=== PATIENT | female | born 1960 | race Two or more races ===

== ENCOUNTER 2021-04-03 11:18 | Outpatient (CLI) | payer OTHER | END 2021-04-03 14:07 | disposition home or self-care (01) | LOC: SONOGRAMA 11:18 | PROVIDERS: ATTEND Pathology Anatomic Pathology & Clinical Pathology | DX: E06.9 Thyroiditis, unspecified (principal) ==

== ENCOUNTER 2021-05-10 10:09 | Outpatient (CLI) | payer OTHER | END 2021-05-10 13:44 | disposition home or self-care (01) | LOC: SONOGRAMA 10:09 | PROVIDERS: ATTEND Pathology Anatomic Pathology & Clinical Pathology | DX: E04.1 Nontoxic single thyroid nodule (principal) ==

== ENCOUNTER 2023-02-10 09:16 | Outpatient (CLI) | payer OTHER | END 2023-02-10 09:27 | disposition home or self-care (01) | LOC: SONOGRAMA 09:16 | PROVIDERS: ATTEND Pathology Anatomic Pathology & Clinical Pathology | DX: D34 Benign neoplasm of thyroid gland (principal); E04.1 Nontoxic single thyroid nodule; E07.9 Disorder of thyroid, unspecified; E04.9 Nontoxic goiter, unspecified ==